=== PATIENT | female | born 1975 | race Caucasian/White ===

== ENCOUNTER → 2016-11-16 | Outpatient (CLI) | payer BC, OTHER ==
--- NOTE | 2016-11-22 17:28 | MA ---
Screening Digital Mammogram, With iCAD Analysis Clinical Indications: Routine screening. A sister and first cousin have been diagnosed with breast cancer in their 40s. The patient has had a benign breast biopsy. Technique: Standard cephalocaudal and mediolateral oblique projections were obtained. This examinati on was processed by the iCAD computer aided detection system. Comparison: April 2015, April 2014, March 2013, February 2011. Breast density: Type D; Extremely dense. Findings: CAD was reviewed. Heterogeneous glandular pattern is present bilaterally. No spiculated masses, suspicious calcifications, or other signs of malignancy are identified. There has been no s ignificant change in the appearance of either breast. Impression: Benign mammography, BI-RADS 2. Recommendation: Routine mammographic screening in one year as long as physical examination is negati ve in this patient with extremely dense breast tissue. [facility] will send a result letter to the patient. Dense breast parenchyma diminishes mammographic sensitivity. Negative mammography should not preclude additional workup of a clinically suspicious finding. The patient's information is entered into a reminder system with a target due date for her next mammo gram.
== END ==
LOC: BMCIMAGING 08:35
DX: Z12.31 Encounter for screening mammogram for malignant neoplasm of breast (principal); Z80.3 Family history of malignant neoplasm of breast
CPT/HCPCS: G0202

== ENCOUNTER → 2017-12-07 | Outpatient (CLI) | payer BC | LOC: BMCIMAGING 12:57 | PROVIDERS: ATTEND Internal Medicine | DX: Z12.31 Encounter for screening mammogram for malignant neoplasm of breast (principal); Z80.3 Family history of malignant neoplasm of breast ==

== ENCOUNTER → 2017-12-08 | Outpatient (CLI) | payer BC | LOC: BMCIMAGING 11:45 | PROVIDERS: ATTEND Podiatrist Foot & Ankle Surgery | DX: M77.32 Calcaneal spur, left foot (principal); M25.571 Pain in right ankle and joints of right foot ==

== ENCOUNTER → 2017-12-23 | Outpatient (CLI) | payer BC | LOC: BMCIMAGING 10:51 | PROVIDERS: ATTEND Internal Medicine | DX: R92.8 Other abnormal and inconclusive findings on diagnostic imaging of breast (principal); R59.9 Enlarged lymph nodes, unspecified | CPT/HCPCS: 76536-PO ==

== ENCOUNTER → 2018-06-19 | Outpatient (CLI) | payer BC | LOC: BMCIMAGING 09:30 | PROVIDERS: ATTEND Internal Medicine | DX: R92.0 Mammographic microcalcification found on diagnostic imaging of breast (principal); Z86.018 Personal history of other benign neoplasm ==

== ENCOUNTER → 2018-12-20 | Outpatient (CLI) | payer BC | LOC: FIMAGING 16:19 | PROVIDERS: ATTEND Internal Medicine | DX: Z12.31 Encounter for screening mammogram for malignant neoplasm of breast (principal) ==